=== PATIENT | male | born 1970 | race Caucasian/White ===

== ENCOUNTER 2021-10-13 14:08 | Emergency (ER) | payer OTHER ==
[~2021-10-13] VITALS: Ht 182.9 cm; Wt 90.7 kg
[2021-10-13 14:08] VITALS: BP 151/107
[2021-10-13] MEDS ORDERED: NACL 0.9% 1,000 ML IV ONE (14:20)
[2021-10-13] MEDS ORDERED: MORPHINE SULFATE 4 MG/ML SYR IVP ONE (14:20)
[2021-10-13] MEDS ORDERED: ONDANSETRON 4 MG/2 ML VIAL IVP ONE (14:20)
[2021-10-13 15:15] LABS: BASOPHILS % (AUTO) 0.3 % (0.0-2.0); EOSINOPHILS # (AUTO) 0.1 K/uL (0-0.4); EOSINOPHILS % (AUTO) 0.4 % (0.0-4.0); HEMOGLOBIN 16.9 g/dL (12.0-18.0); LYMPHOCYTES # (AUTO) 1.9 K/uL (2.0-11.5); LYMPHOCYTES % (AUTO) 11.9 % (20.5-51.1); MEAN CORPUSCULAR HEMOGLOBIN 27 pg (27-31); MEAN CORPUSCULAR HGB CONC 33 g/dL (33-37); MEAN CORPUSCULAR VOLUME 80.6 fL (80-94); MONOCYTES # (AUTO) 0.8 K/uL (0.8-1.0); MONOCYTES % (AUTO) 5.1 % (1.7-9.3); NEUTROPHILS # (AUTO) 12.8 K/uL (1.8-7.7); NEUTROPHILS % (AUTO) 82.3 % (42.2-75.2); PLATELET COUNT (AUTO) 285 K/uL (140-450); RED BLOOD CELL COUNT(AUTO) 6.32 MIL/uL (4.20-6.10); RED CELL DISTRIBUTION WIDTH 13.6 % (11.6-13.7); WHITE BLOOD COUNT (AUTO) 15.6 K/uL (4.8-10.8)
--- NOTE | 2021-10-13 15:15 | NUR ---
20G IV CATH PLACED IN R AC
--- NOTE | 2021-10-13 15:20 | NUR ---
PATIENT TO CT
[2021-10-13 15:42] LABS: ALBUMIN 4.3 g/dL (3.4-5.0); ANION GAP 12.8 (8-16); CARBON DIOXIDE 24.9 mmol/L (21-32); CREATININE 1.2 mg/dL (0.6-1.3); POTASSIUM 3.7 mmol/L (3.5-5.1); TOTAL BILIRUBIN 0.5 mg/dL (0.0-1.0)
--- NOTE | 2021-10-13 16:02 | NUR ---
PATIENT PAIN LEVEL 8/10. NPO PER ER MD
[2021-10-13] MEDS ORDERED: HYDROmorphone PFS 2 MG/ML SYR IVP ONE (16:05)
--- NOTE | 2021-10-13 16:42 | NUR ---
1YR OLD MALE BIB EMS C/O L LOWER FLANK PAIN X1 DAY. PT STATES HE THINKS HES PASSING A KIDNEY STONE. PT IS 10/10 PAIN. 20G IV CATH PLACED IN R AC. PATIENT ASKING FOR PAIN MEDS. SIDE RAILS UP X2 BED AT LOWEST POSITION Addendum: 10/13/21 at 1732 by MNURPM 50YR OLD MALE [facility] C/O L LOWER FLANK PAIN X1 DAY. PT STATES HE THINKS HES PASSING A KIDNEY STONE. PT IS 10/10 PAIN. 20G IV CATH PLACED IN R AC. PATIENT ASKING FOR PAIN MEDS. SIDE RAILS UP X2 BED AT LOWEST POSITION
[2021-10-13] MEDS ORDERED: KETOROLAC 30 MG/ML VIAL IVP ONE (17:20)
[2021-10-13 17:46] LABS: APPEARANCE,URINE CLEAR (CLEAR); BILIRUBIN,URINE 1+ (NEGATIVE); BLOOD, URINE 3+ (NEGATIVE); COLOR,URINE YELLOW (YELLOW); LEUKOCYTE ESTERASE ,URINE NEGATIVE (NEGATIVE); NITRITE, URINE NEGATIVE (NEGATIVE); PH,URINE 5.5 (5.0-9.0); UGLUCOSE NEGATIVE (NEGATIVE)
[2021-10-13 18:22] LABS: WBC,URINE 0-5 /HPF (0-5)
[2021-10-13 18:24] LABS: OTHER CASTS, URINE None Seen /LPF (None Seen)
[2021-10-13] MEDS ORDERED: KETOROLAC 15 MG/ML VIAL IVP ONE (18:25)
[2021-10-13] MEDS ORDERED: ACET-9527 PO (18:32)
[2021-10-13] MEDS ORDERED: ACET-10509 PO (18:32)
[2021-10-13 19:01] VITALS: BP 163/96
--- NOTE | 2021-10-13 19:01 | NUR ---
Patient discharged with v/s stable. Written and verbal after care instructions given and explained. Patient alert, oriented and verbalized understanding of instructions. Ambulatory with steady gait. All questions addressed prior to discharge. ID band removed. Patient advised to follow up with PMD. Rx of TYLENOL HYDROCODON given. Patient educated on indication of medication including possible reaction and side effects. Opportunity to ask questions provided and answered.
--- NOTE | 2021-10-13 19:02 | NUR ---
The patient's care was reviewed and supervised by Aimee Crockett RN.
== END 2021-10-13 19:01 | disposition home or self-care (01) ==
LOC: MED 14:08
DX: R10.9 Unspecified abdominal pain (principal); Z87.442 Personal history of urinary calculi; Z79.899 Other long term (current) drug therapy
CPT/HCPCS: 36415; 74176; 80053; 81001; 85025; 87086; 96361; 96374; 96375; 99284; J1170; J1885; J2270; J2405; J7030